=== PATIENT | female | born 1940 | race Caucasian/White ===

== ENCOUNTER 2018-03-22 06:15 | Day surgery (SDC) | payer OTHER ==
[~2018-03-22 06:15] MED LIST: ATENOLOL25 MG PO; FINOFIBRATE PO; RESTORIL15 M1 PO; ZANTAC300 MG PO; [UNRECOGNIZED DRUG - OTHER] PO
== END 2018-03-22 09:30 | disposition home or self-care (01) ==
LOC: AMB-ENDOS 06:15
DX: K57.30 Diverticulosis of large intestine without perforation or abscess without bleeding (principal); K64.2 Third degree hemorrhoids